=== PATIENT | female | born 1970 | race Hispanic/Latino ===

== ENCOUNTER 2020-08-09 16:02 | Outpatient (CLI) | payer BC ==
--- NOTE | 2020-08-09 16:27 | MMO ---
Bilateral MAMMO Bilat Screen [facility]. CLINICAL HISTORY: Patient is 50 years old and is seen for screening. The patient has no family history of breast cancer. The patient has no personal history of cancer. The patient has a history of right Excisional Biopsy in 1996 - benign. VIEWS: The views performed were: bilateral craniocaudal with tomosynthesis and bilateral mediolateral oblique with tomosynthesis. This study has been interpreted with the assistance of computer-aided detection. MAMMOGRAM FINDINGS: There are scattered fibroglandular densities. There is a round mass measuring 5 millimeters with circumscribed margins seen in the upper-outer region of the right breast. In the left breast, there are no suspicious masses, calcifications or areas of architectural distortion. IMPRESSION: MASS IN THE RIGHT BREAST REQUIRES ADDITIONAL EVALUATION. AN ULTRASOUND EXAM IS RECOMMENDED. THE RESULTS OF THIS EXAM WERE SENT TO THE PATIENT. ACR BI-RADS Category 0 - Incomplete: Need additional imaging evaluation. [facility] will notify the patient of the need for additional imaging services. MAMMOGRAPHY NOTE: 1. A negative mammogram report should not delay a biopsy if a dominant of clinically suspicious mass is present. 2. Approximately 10% to 15% of breast cancers are not detected by mammography. 3. Adenosis and dense breasts may obscure an underlying neoplasm. Reported by: HERMES NG MD Electonically Signed: [id number]
== END 2020-08-09 16:03 | disposition home or self-care (01) ==
LOC: BICMAMMO 16:02
PROVIDERS: ATTEND Nurse Practitioner Family
DX: Z12.31 Encounter for screening mammogram for malignant neoplasm of breast (principal); N63.11 Unspecified lump in the right breast, upper outer quadrant; Z91.89 Other specified personal risk factors, not elsewhere classified
CPT/HCPCS: 77063; 77067

== ENCOUNTER 2020-09-01 15:48 | Outpatient (CLI) | payer BC ==
--- NOTE | 2020-09-01 16:15 | ULT ---
EXAM: US Breast Limited Rt PROVIDED CLINICAL HISTORY: Abnormal screening mammogram COMPARISON: Screening mammogram 08/09/2020 FINDINGS: Limited sonographic interrogation was performed of the right breast at the 10:00 position in the cruz on of mammographic concern. A intramammary lymph node is demonstrated, corresponding to the mammographic finding. IMPRESSION: Benign intramammary lymph node. Return to screening. BI-RADS 2 -- benign findings
== END 2020-09-01 15:49 | disposition home or self-care (01) ==
LOC: BICULT 15:48
PROVIDERS: ATTEND Nurse Practitioner Family
DX: N63.10 Unspecified lump in the right breast, unspecified quadrant (principal)